=== PATIENT | female | born 1960 | race Caucasian/White ===

== ENCOUNTER 2020-01-13 17:30 | Outpatient (CLI) | payer OTHER | END 2020-01-13 17:31 | disposition home or self-care (01) | LOC: SLEEPLAB 17:30 | PROVIDERS: ATTEND Internal Medicine Pulmonary Disease | DX: G47.33 Obstructive sleep apnea (adult) (pediatric) (principal); R53.83 Other fatigue; R06.83 Snoring; K21.9 Gastro-esophageal reflux disease without esophagitis; I25.10 Atherosclerotic heart disease of native coronary artery without angina pectoris; I51.9 Heart disease, unspecified; F41.9 Anxiety disorder, unspecified; G47.00 Insomnia, unspecified; R06.02 Shortness of breath; E66.9 Obesity, unspecified; R09.02 Hypoxemia; Z68.33 Body mass index [BMI] 33.0-33.9, adult | CPT/HCPCS: 95801 ==

== ENCOUNTER 2020-01-30 19:00 | Outpatient (CLI) | payer OTHER | END 2020-01-30 19:01 | disposition home or self-care (01) | LOC: SLEEPLAB 19:00 | PROVIDERS: ATTEND Internal Medicine Pulmonary Disease | DX: G47.33 Obstructive sleep apnea (adult) (pediatric) (principal); R40.0 Somnolence; R53.83 Other fatigue; E66.9 Obesity, unspecified; K21.9 Gastro-esophageal reflux disease without esophagitis; R06.83 Snoring; I51.89 Other ill-defined heart diseases; I25.10 Atherosclerotic heart disease of native coronary artery without angina pectoris; Z68.33 Body mass index [BMI] 33.0-33.9, adult | CPT/HCPCS: 95811 ==

== ENCOUNTER 2021-08-16 13:36 | Outpatient (CLI) | payer BC | END 2021-08-16 13:37 | disposition home or self-care (01) | LOC: BICCT 13:36 | PROVIDERS: ATTEND Psychiatry & Neurology Neurology | DX: G45.9 Transient cerebral ischemic attack, unspecified (principal) | CPT/HCPCS: 70450 ==

== ENCOUNTER 2022-06-14 12:52 | Outpatient (CLI) | payer BC | END 2022-06-14 12:53 | disposition home or self-care (01) | LOC: RAD 12:52 | PROVIDERS: ATTEND Physician Assistant Medical | DX: D17.1 Benign lipomatous neoplasm of skin and subcutaneous tissue of trunk (principal); K44.9 Diaphragmatic hernia without obstruction or gangrene; R19.2 Visible peristalsis; K22.89 Other specified disease of esophagus | CPT/HCPCS: 74220 ==

== ENCOUNTER → 2022-06-29 | Day surgery (SDC) | payer BC ==
[~2022-06-29] MED LIST: Lidocaine Jelly 2% Urojet 10 ML ONE
== END | disposition home or self-care (01) ==
LOC: SDC 12:40
PROVIDERS: ATTEND Physician Assistant Medical
DX: K22.4 Dyskinesia of esophagus (principal); M19.90 Unspecified osteoarthritis, unspecified site; K21.9 Gastro-esophageal reflux disease without esophagitis; I10 Essential (primary) hypertension; K44.9 Diaphragmatic hernia without obstruction or gangrene; E66.3 Overweight; Z68.39 Body mass index [BMI] 39.0-39.9, adult; Z79.899 Other long term (current) drug therapy; Z88.2 Allergy status to sulfonamides; Z91.011 Allergy to milk products; Z95.5 Presence of coronary angioplasty implant and graft
CPT/HCPCS: 91010; J2001

== ENCOUNTER 2022-07-11 17:30 | Outpatient (CLI) | payer BC | END 2022-07-11 17:31 | disposition home or self-care (01) | LOC: SLEEPLAB 17:30 | PROVIDERS: ATTEND Internal Medicine Critical Care Medicine | DX: G47.33 Obstructive sleep apnea (adult) (pediatric) (principal); R53.83 Other fatigue; G31.84 Mild cognitive impairment of uncertain or unknown etiology; R06.83 Snoring | CPT/HCPCS: 95800 ==

== ENCOUNTER 2022-12-04 13:50 | Outpatient (CLI) | payer BC | END 2022-12-04 13:51 | disposition home or self-care (01) | LOC: RAD 13:50 | PROVIDERS: ATTEND Internal Medicine Critical Care Medicine | DX: R06.00 Dyspnea, unspecified (principal); I51.7 Cardiomegaly; K44.9 Diaphragmatic hernia without obstruction or gangrene | CPT/HCPCS: 71046 ==

== ENCOUNTER 2023-01-14 14:51 | Observation (INO) | payer BC ==
[~2023-01-14 14:51] MED LIST changes: +Iopamidol-370 76% 500 ML MDV (1 ML CHARGE) ONE; -Lidocaine Jelly 2% Urojet 10 ML ONE
[2023-01-14 15:59] LABS: Bacteria/HPF 2+ HPF (None Seen); Bilirubin Negative (Negative); Blood, Urine Negative (Negative); CAUTI Indications for Culture Pelvic or flank pain; Clarity Clear (Clear); Glucose, Urine (Dipstick) Normal (Negative); Ketone, Urine Negative (Negative); Leukocyte 250 Leu/uL (Negative); Nitrite Negative (Negative); Protein, Urine (Dipstick) Negative (Neg-Trace); RBC/HPF 0-3 HPF (0-3); Specific Gravity, Urine 1.014 (1.002-1.036); Squamous Epithelial 0-3 HPF (0-3); Urobilinogen Normal mg/dL (Less than 2); WBC/HPF 21-50 HPF (0-3); pH, Urine 5.5 (5.0-9.0)
[2023-01-14 16:00] LABS: Urine Culture Reflex Yes Yes
[2023-01-14 16:02] LABS: #Eosinphils 0.2 thou/uL (0.0-0.7); #Monocytes 1.1 thou/uL (0.11-0.59); #Neutrophils 3.9 thou/uL (1.40-6.50); %Basophils 0.6 % (0.0-1.0); %Eosinophils 2.9 % (0.0-10.0); %Lymphocytes 25.7 % (21.0-51.0); %Monocytes 15.6 % (0.0-10.0); %Neutrophils 54.9 % (42.0-75.0); Hemoglobin 12.4 g/dL (12.0-16.0); Mean Corpuscular HGB CONC 33.8 g/dL (32.0-36.0); Mean Corpuscular Hemoglobin 32.5 pg (27.0-31.0); Mean Corpuscular Volume 96.3 fl (78.0-98.0); Mean Platelet Volume 10.1 fL (7.4-10.4); Platelet Count 170 10x3/uL (130-400); RBC Distribution Width 14.1 % (11.5-14.5); Red Blood Cell (RBC) Count 3.81 mill/uL (4.20-5.40); White Blood Cell (WBC) Count 7.2 10x3/uL (4.8-10.8)
[2023-01-14 16:27] LABS: ALT (SGPT) 16 U/L (8-55); AST (SGOT) 25 U/L (5-34); Albumin 4.1 g/dL (3.4-4.8); Alkaline Phosphatase 68 U/L (40-110); Anion Gap 12 mmol/L (10-20); BUN (Urea Nitrogen) 15 mg/dL (9.8-20.1); Bilirubin, Total 0.4 mg/dL (0.2-1.2); Calc. Creatinine Clearance 0 mL/min (70-130); Calcium 9.9 mg/dL (7.8-10.44); Carbon Dioxide 25 mmol/L (23-31); Chloride 107 mmol/L (98-107); Estimated GFR 63; Globulin 3.1 g/dL (2.4-3.5); Glucose 114 mg/dL (80-115); Potassium 4.4 mmol/L (3.5-5.1); Protein, Total 7.2 g/dL (5.8-8.1); Sodium 140 mmol/L (136-145)
[2023-01-14] MEDS ORDERED: Ondansetron ODT 4 MG TAB PO PRN (17:47)
[2023-01-14] MEDS ORDERED: Lorazepam 2 MG/ML VIAL SLOW IVP PRN (17:58)
[2023-01-14] MEDS ORDERED: Piperacillin/Tazobactam 3.375 GM in Sodium Chloride 0.9% 100 ML IVPB SCH (19:45)
[2023-01-14 20:43] VITALS: BMI 40.5
[2023-01-14] MEDS: Rosuvastatin 20 MG TAB PO SCH (21:37)
[2023-01-14] MEDS: Morphine 4 MG/ML VIAL SLOW IVP PRN (21:37)
[2023-01-15] MEDS: Morphine 4 MG/ML VIAL SLOW IVP PRN ×5 (02:29→22:42)
[2023-01-15] MEDS: Piperacillin/Tazobactam 3.375 GM in Sodium Chloride 0.9% 100 ML IVPB SCH ×3 (02:31→17:45)
[2023-01-15 05:10] LABS: #Eosinphils 0.2 thou/uL (0.0-0.7); #Monocytes 0.9 thou/uL (0.11-0.59); #Neutrophils 3.8 thou/uL (1.40-6.50); %Basophils 0.6 % (0.0-1.0); %Eosinophils 3.5 % (0.0-10.0); %Lymphocytes 26.6 % (21.0-51.0); %Monocytes 13.6 % (0.0-10.0); %Neutrophils 55.3 % (42.0-75.0); Hemoglobin 11.6 g/dL (12.0-16.0); Mean Corpuscular HGB CONC 33.2 g/dL (32.0-36.0); Mean Corpuscular Volume 99.1 fl (78.0-98.0); Platelet Count 162 10x3/uL (130-400); RBC Distribution Width 14.2 % (11.5-14.5); Red Blood Cell (RBC) Count 3.52 mill/uL (4.20-5.40); White Blood Cell (WBC) Count 6.9 10x3/uL (4.8-10.8)
[2023-01-15 05:35] LABS: Anion Gap 12 mmol/L (10-20); BUN (Urea Nitrogen) 15 mg/dL (9.8-20.1); Calc. Creatinine Clearance 98 mL/min (70-130); Calcium 9.3 mg/dL (7.8-10.44); Carbon Dioxide 25 mmol/L (23-31); Chloride 106 mmol/L (98-107); Estimated GFR 58; Glucose 126 mg/dL (80-115); Sodium 139 mmol/L (136-145)
[2023-01-15] MEDS: Folic Acid 1 MG TAB PO SCH (08:13)
[2023-01-15] MEDS: Hydrochlorothiazide 25 MG TAB PO SCH (08:13)
[2023-01-15] MEDS: Aspirin 81 mg Enteric Coated Tablet PO SCH (08:13)
[2023-01-15] MEDS: Clopidogrel Bisulfate 75 MG TAB PO SCH (08:13)
[2023-01-15] MEDS: Sertraline 25 MG TAB PO SCH (08:14)
[2023-01-15] MEDS: Losartan 25 MG TAB PO SCH (08:15)
[2023-01-15] MEDS: Acetaminophen 325 MG TAB PO PRN ×2 (13:45→21:44)
[2023-01-15] MEDS: Rosuvastatin 20 MG TAB PO SCH (21:39)
[2023-01-16] MEDS: Piperacillin/Tazobactam 3.375 GM in Sodium Chloride 0.9% 100 ML IVPB SCH ×2 (03:34→09:04)
[2023-01-16 03:55] VITALS: TEMP 99.3
[2023-01-16] MEDS: Losartan 25 MG TAB PO SCH (09:05)
[2023-01-16] MEDS: Clopidogrel Bisulfate 75 MG TAB PO SCH (09:05)
[2023-01-16] MEDS: Sertraline 25 MG TAB PO SCH (09:05)
[2023-01-16] MEDS: Morphine 4 MG/ML VIAL SLOW IVP PRN (09:06)
[2023-01-16] MEDS: Acetaminophen 325 MG TAB PO PRN (09:06)
[2023-01-16] MEDS: Hydrochlorothiazide 25 MG TAB PO SCH (09:06)
[2023-01-16] MEDS: Aspirin 81 mg Enteric Coated Tablet PO SCH (09:06)
[2023-01-16] MEDS: Folic Acid 1 MG TAB PO SCH (09:06)
[2023-01-16 12:44] VITALS: BP 124/79
== END 2023-01-16 15:15 | disposition home or self-care (01) ==
LOC: SUATTDRO 14:51 → ERS 14:51 → NEURO 17:36
PROVIDERS: ADMIT Family Medicine; ATTEND Internal Medicine
DX: R53.1 Weakness (principal); I25.10 Atherosclerotic heart disease of native coronary artery without angina pectoris; G45.9 Transient cerebral ischemic attack, unspecified; I10 Essential (primary) hypertension; E78.5 Hyperlipidemia, unspecified; M54.9 Dorsalgia, unspecified; G89.29 Other chronic pain; N39.0 Urinary tract infection, site not specified; K57.90 Diverticulosis of intestine, part unspecified, without perforation or abscess without bleeding; F40.240 Claustrophobia; R20.0 Anesthesia of skin; Z88.2 Allergy status to sulfonamides; Z79.82 Long term (current) use of aspirin; Z79.899 Other long term (current) drug therapy; Z79.02 Long term (current) use of antithrombotics/antiplatelets
CPT/HCPCS: 0042T; 36415; 70450; 70496; 70498; 70551; 72141; 72148; 74176; 80048; 80053; 81001; 84443; 84484; 85025; 87077; 87086; 87186; 93005; 96372; 96374; 96375; 96376; G0378; J1650; J2060; J2270; J2543; J3490; Q0162; Q9967